=== PATIENT | male | born 1960 | race African-American/Black ===

== ENCOUNTER → 2019-07-25 | Outpatient (CLI) | payer OTHER ==
[~2019-07-25] MED LIST: ALFU10TA30 PO; ALLO100T PO; AMLO2.5T4 PO; ATOR10TA84 PO; FINA-27 PO; HYDR-3965 PO; LISI-661 PO; METF-960 PO; OMEP20 PO
== END | disposition home or self-care (01) ==
LOC: RADPV 07:34
PROVIDERS: ATTEND Orthopaedic Surgery
DX: M13.861 Other specified arthritis, right knee (principal); M25.761 Osteophyte, right knee